=== PATIENT | male | born 1965 | race Caucasian/White ===

== ENCOUNTER → 2023-09-07 | Outpatient (CLI) | payer OTHER, SELFPAY ==
--- NOTE | 2023-09-07 13:52 | STRESSREP_ITS ---
Stress Test Report Exercise myocardial perfusion stress test. 58-year-old man with a history of chest pain Stress protocol: Resting EKG demonstrates normal sinus rhythm with a rate of 73 bpm resting blood pressure is 142/88 mmHg. occasional premature ventricular complexes present. The patient exercised according to the regular James protocol for a total dura tion of 7 minutes and 15 seconds attaining a maximum heart rate of 142 bpm which was 88% of maximum predicted heart rate; the maximum workload was 10.1 metabolic equivalents. At rest there were no ST or T wave changes noted to suggest ischemia and at peak exercise upsloping ST changes only were noted which did not meet the criteria for ischemia. No clinical angina was noted the test was terminated due to the target heart rate being achieved/fatigue. The peak blood pressure was 158/80 mmHg. Rate-pressure product was 19,700. Myocardial perfusion protocol. 14 mCi of technetium 99m sestamibi was injected at rest. The patient exercised according to regular James protocol for total duration of 7 minutes and 15 seconds and at peak exercise 45 mCi of technetium 99m sestamibi was injected str ess images were obtained stress and rest images were reconstructed in comparing the short axis vertical long and horizontal long axis. Gated images were also obtained. Perfusion SPECT analysis: Review of the stress images demonstrate normal uptake of tracer noted in all areas of the myocardium. The resting images similarly demonstrate normal uptake of tracer noted in all areas of the myocardium. No areas of reversibility are noted to suggest ischemia no previous infarct was noted. Gated SPECT analysis: The gated ejection fraction is 62%. Conclusion: Normal exercise myocardial perfusion stress test at a high workload Preserved ejection fraction.
== END | disposition home or self-care (01) ==
PROVIDERS: Referring Provider Family Medicine; Visit Provider Family Medicine
DX: R07.9 Chest pain, unspecified (principal)
CPT/HCPCS: 78452; 93017; A9500; A4216